=== PATIENT | female | born 1980 | race Caucasian/White ===

== ENCOUNTER → 2024-10-14 09:09 | Outpatient (CLI) | payer OTHER, SELFPAY ==
[2024-10-14 09:35] LABS: Add Manual Diff / Slide Review NO; Hematocrit 40.2 % (36-46); Hemoglobin 13.3 g/dL (12.0-16.0); Lymphocytes Absolute Auto 1300 /uL (1100-4500); Mean Corpuscular HGB Conc 33.2 % (30-36); Mean Corpuscular Hemoglobin 28.5 PG (26-34); Mean Corpuscular Volume 86.1 fL (80-100); Platelet Count 239 X10^3/uL (150-400)
[2024-10-14 10:12] LABS: HEMOLYSIS < 15 (0-50); Iron 46 ug/dL (37-170)
[2024-10-14 10:14] LABS: Alanine Aminotransferase 23 IU/L (<35); Albumin 4.7 g/dL (3.5-5.0); Albumin Globulin Ratio 1.2 (1.0-2.8); Alkaline Phosphatase 87 U/L (38-126); Blood Urea Nitrogen 10 mg/dL (7-17); Calcium 9.3 mg/dL (8.4-10.2); Carbon Dioxide 25 mmol/L (22-32); Chloride 104 mmol/L (98-107); Estimated Glomerular Filt Rate > 60 mL/min (>60); Globulin 4.0 g/dL (1.7-4.1); Glucose 93 mg/dL (70-99); HEMOLYSIS < 15 (0-50); Potassium 4.4 mmol/L (3.4-5.1); Sodium 139 mmol/L (137-145); Total Protein 8.7 g/dL (6.3-8.2)
[2024-10-14 10:17] LABS: Vitamin D 25 Hydroxy (D3) 45.0 ng/mL (30.0-100.0)
[2024-10-14 10:25] LABS: Percent Iron Saturation 12 % (15-50); Total Iron Binding Capacity 386 ug/dL (265-497); Transferrin 329 mg/dL (206-381)
[2024-10-14 13:06] LABS: Ferritin 6 ng/mL (6-137)
== END ==
PROVIDERS: PCP Student in an Organized Health Care Education/Training Program; Referring Provider Student in an Organized Health Care Education/Training Program; Visit Provider Student in an Organized Health Care Education/Training Program
DX: E55.9 Vitamin D deficiency, unspecified (principal); D63.8 Anemia in other chronic diseases classified elsewhere; K51.919 Ulcerative colitis, unspecified with unspecified complications
CPT/HCPCS: 36415; 80053; 82306; 82728; 83540; 83550; 85025